=== PATIENT | female | born 1935 | race Caucasian/White ===

== ENCOUNTER 2017-12-14 05:09 | Inpatient (IN) ==
[2017-12-14] MEDS ORDERED: Chlorhexidine Gluconate 2% 1 Pack (2 Cloths) TOPICAL ONE (05:39)
[2017-12-14] MEDS ORDERED: Metoprolol Tartrate 25 MG Tablet PO ONE (05:39)
[2017-12-14] MEDS ORDERED: Dexamethasone Inj 20 MG/5 ML Vial IV.PUSH ONE (05:41)
[2017-12-14] MEDS ORDERED: Chlorhexidine 4% Topical 120 APPLIC/120 ML Bottle TOPICAL SCH (05:45)
[2017-12-14] MEDS ORDERED: Sodium Chlor 0.9% Inj 500 ML IV.SIG SCH (06:00)
[2017-12-14] MEDS ORDERED: ceFAZolin 2 GM Premix Inj 2 GM/50 ML PIGGYBACK IV.SIG SCH (06:00)
[2017-12-14] MEDS ORDERED: Vancomycin Inj 1,000 MG in Sodium Chlor 0.9% Inj 250 ML IV.SIG SCH (06:00)
[2017-12-14] MEDS ORDERED: ceFAZolin 2 GM Premix Inj 2 GM/100 ML BAG IV.SIG ONE (06:06)
[2017-12-14] MEDS ORDERED: Propofol Inj 500 MG/50 ML Vial ONE (06:28)
[2017-12-14] MEDS ORDERED: Bupivacaine/Dextrose 0.75% Inj 2 ML Ampul ONE (06:28)
[2017-12-14] MEDS ORDERED: Bupivacaine Liposomal PF 1.3% Inj 20 ML Vial ONE (06:33)
[2017-12-14] MEDS ORDERED: Lidocaine PF 1% Inj 5 ML Syringe OTHER ONE (07:00)
[2017-12-14] MEDS ORDERED: TRANEXAMIC ACID IV.SIG SCH ×2 (07:00→10:00)
[2017-12-14] MEDS ORDERED: Sodium Chlor 0.9% Inj 73.07 ML, Ropivacaine 0.5% PF Inj 24.63 ML, Ketorolac Inj 30 MG, ... P-ARTICULR SCH ×5 (07:00)
[2017-12-14] MEDS ORDERED: SODIUM CHLOR 0.9% IV.SIG SCH ×2 (07:00→10:00)
--- NOTE | 2017-12-14 07:13 | P.DCO ---
- Physical Therapy Physical Therapy: Gait training, Transfer training, bed to chair Knee: Total knee Right Lower Extremity Weight Bearing: Weight bearing as tolerated Right Lower Extremity Range of Motion: Active ROM - Nursing Nursing: Pio weber Dressing changes: Do not change dressing Additional instructions: First dressing change in office - Certification Need for Home Health services: I have seen patient Geri Olmos on 12/14/17. My clinical findings support the need for the requested home health care services because: Need for Home Health Services: Limited ability to care for self, High risk of falls Homebound Certification: I certify that my clinical findings support that this patient is homebound because: Homebound Certification: Post-op weakness, Unsteady gait/balance
[2017-12-14] MEDS ORDERED: Morphine Inj 4 MG/ML Vial IV.PUSH PRN (08:31)
[2017-12-14] MEDS ORDERED: Aluminum/Magnesium/Simethacone Susp 30 ML UDC PO PRN (08:31)
[2017-12-14] MEDS ORDERED: Post-op Orders (for Pharmacy) OTHER STA (08:31)
[2017-12-14] MEDS ORDERED: Bisacodyl 10 MG Supp RECTAL PRN (08:31)
--- NOTE | 2017-12-14 08:36 | P.OP ---
- Preoperative Diagnosis (1) Primary localized osteoarthritis of right knee - Postoperative Diagnosis (1) Primary localized osteoarthritis of right knee Date of procedure: 12/14/17 Procedure: Right total knee arthroplasty [facility] Surgeon: Davey Alcala MD Collector Of Internal Revenue: CHANA Ordonez The surgical procedure was assisted by my Advanced Registered Nurse Practitioner. My BIOLOGIST presence was necessary throughout this case for the manipulation and positioning of the surgical extremity. My BIOLOGIST was assisting me throughout the duration of this procedure. The skill set of an Advance Registered Nurse Practitioner was medically necessary to complete this procedure. During the surgical case, the director surgical was working at the back table and the Advance Registered Nurse Practitioner was directly assisting me. Operation and Findings: IMPLANTS: DePuy Attune: Patella: size 32. Femur, posterior stabilized size 6 narrow. Tibia, rotating platform size 4. Tibial insert, rotating platform, posterior stabilized size 5 mm thickness. ESTIMATED BLOOD LOSS: 150 cc TOURNIQUET TIME: 42 minutes at 250 mmHg pressure. JUSTIFICATION FOR PROCEDURE: The patient has end-stage osteoarthritis to the knee. There is an attached conservative measures pathway form in the chart that describes the nonoperative measures that were undertaken prior to consideration of surgical management. The patient understood the risks and benefits of surgical management. See my office notes for further details PROCEDURE: The patient was brought back to the operative theatre. Adequate anesthesia was obtained. The patient received intravenous vancomycin and Ancef. The lower extremity was prepped and draped in the usual sterile fashion.The leg was exsanguinated, the tourniquet was raised. A standard anterior incision was performed followed by medial parapatellar arthrotomy was performed. End-stage arthritis was identified. Osteotomy of the patella was performed. We drilled holes for the patella. We trialed the patella component. We placed an intramedullary guide into the distal femur. We ultimately resected 13 mm off of the distal femur in 5 degrees of valgus. The remnants of the ACL and PCL were resected. Osteotomy of the proximal tibia was performed, resecting 6 mm off of the medial side. This was done with 3 degrees of posterior slope using an extramedullary guide. The distal end of the guide was placed in the mid aspect of the ankle. The femur was sized, and four chamfer cuts were completed in 3 of external rotation. We then cut the central box in the distal femur to replace the PCL. We resected the remnants of the menisci and removed osteophytes off of the femur and tibia. We then trialed the knee. We punched the tibia for the keel, and then used standard technique to cement in components. Excess cement was removed. We trialed the knee again and the final polyethylene thickness was chosen to provide extension to 0 degrees, and flexion of 140 degrees to gravity. The ligaments were appropriately balanced. Lateral release was necessary to obtain excellent patellofemoral tracking. The tourniquet was released and adequate hemostasis was obtained. An intra- articular injection of a ropivacaine cocktail was injected. The posterior knee was inspected for excess cement, which was removed. The final polyethylene was put into position after thorough irrigation. We then closed deep fascia with a #2 Stratafix followed by skin with 2-0 Vicryl followed by Dermabond. Postop plan is to weight-bear as tolerated. DVT prophylaxis will be performed with SCDs, YING mckenzie, early mobilization, and Lovenox followed by aspirin.
[2017-12-14] MEDS ORDERED: fentaNYL Citrate Inj 100 MCG/2 ML Ampul ONE (09:05)
[2017-12-14] MEDS ORDERED: *morphine SULFATE 4 MG/ML PERIprocedure ONLY ONE (09:10)
--- NOTE | 2017-12-14 10:00 | XR ---
EXAM DATE: 12/14/2017 9:54 AM EDT AGE/SEX: 82 years / Female INDICATIONS: Post op right total knee arthroplasty. CLINICAL DATA: This is the patient's initial encounter. Patient reports that signs and symptoms have been present for 1 day and indicates a pain score of 1/10. MEDICAL/SURGICAL HISTORY: None. None. COMPARISON: No prior exams available for comparison. FINDINGS: 2 portable films demonstrate patient had a total knee arthroplasty in good position. No acute fractur es identified. Surgical drain overlies the suprapatellar bursa. CONCLUSION: Status post total knee arthroplasty in excellent position Electronically signed by: Aron Rene MD 12/14/2017 9:58 AM EDT
[2017-12-14] MEDS: Sod Chloride 0.9% Inj 1,000 ML IV.CONT SCH ×2 (10:11→22:11)
[2017-12-14] MEDS: Multivitamin/Minerals Therapeutic Tablet PO SCH ×2 (11:35→20:08)
[2017-12-14] MEDS: Senna/Docusate Sodium 8.6/50 MG Tablet PO SCH ×2 (11:35→20:08)
[2017-12-14] MEDS: amLODIPine 5 MG Tablet PO SCH (20:08)
[2017-12-14] MEDS ORDERED: Zolpidem Tartrate 5 MG Tablet PO PRN (21:00)
[2017-12-15 04:52] LABS: Hematocrit 26.8 % (35.0-46.0); Hemoglobin 9.1 gm/dL (11.6-15.3)
--- NOTE | 2017-12-15 07:19 | P.PNOP ---
Subjective Interval history: The patient is resting comfortably in bed in no acute distress. The patient reports no pain to the right knee. Physical Exam Vital signs: Vital Signs 12/14/17 08:00 12/14/17 09:00 12/14/17 09:15 Temperature 98.9 F 97.7 F Pulse Rate 63 67 65 Respiratory Rate 20 20 20 Blood Pressure 142/65 H 133/60 119/60 Pulse Oximetry 91 L 98 98 12/14/17 09:20 12/14/17 09:30 12/14/17 09:45 Temperature 97.5 F L Pulse Rate 69 65 Respiratory Rate 20 20 20 Blood Pressure 133/67 129/60 Pulse Oximetry 98 98 12/14/17 12:00 12/14/17 16:00 12/14/17 19:00 Temperature 97.3 F L 97.2 F L 97.7 F Pulse Rate 57 L 61 63 Respiratory Rate 20 18 18 Blood Pressure 121/58 L 105/56 L 104/58 L Pulse Oximetry 93 L 91 L 92 L 12/14/17 23:04 12/15/17 03:53 Temperature 97.7 F 97.5 F L Pulse Rate 60 60 Respiratory Rate 18 18 Blood Pressure 106/58 L 108/59 L Pulse Oximetry 92 L 92 L Intake & Output 12/14/17 12/15/17 12/15/17 18:59 06:59 18:59 Intake Total 1406.99 / 1406.99 1560 / 1560 Output Total 300 / 300 Balance 1106.99 / 1106.99 1560 / 1560 Weight 65.5 kg Intake: IV 662.99 / 662.99 1200 / 1200 NS Inj 1,000 ML @ 80 mls/hr IV. 1000 / 1000 CONT .[id number] [facility] Rx#:[id number] Cyklokapron Inj 655 MG In NS 212.99 / 212.99 Inj 100 ML @ 200 mls/hr IV.SIG ONCE [facility] Rx#:[id number] Vancomycin Inj 1,000 MG In NS 250 / 250 Inj 250 ML @ 250 mls/hr IV.SIG MATURITY CHECKER [facility] Rx#:[id number] Ancef 2 GM Premix Inj 2 gm In 100 / 100 100 ml @ 0 mls/hr IV.SIG .STK- [facility] Rx#:[id number] Ancef Inj 1,000 MG In NS Inj 100 / 100 200 / 200 100 ML @ 200 mls/hr IV.SIG Q6H [facility] Rx#:[id number] Oral 360 / 360 Anesthesia Amount 744 / 744 Output: Urine 150 / 150 Estimated Blood Loss 150 / 150 Other: # Voids 1 Date of Last Bowel Movement 12/13/17 12/13/17 # Bowel Movements 0 Narrative: The patient's dressing is clean, dry, and intact. EHL/TA/G are intact. 2+ pedal pulse. The patient's calf is soft and nontender. Sensation is intact to light touch distally. Canvas knee splint is in place. Results - Labs CBC & Chem 7: 12/15/17 03:35 Laboratory Results - last 24 hr 12/14/17 12/15/17 05:45 03:35 Hgb 9.1 L Hct 26.8 L Blood Type A Positive Blood Type Recheck Required Antibody Screen Negative - Imaging Impressions Knee X-Ray 12/14/17 08:30 CONCLUSION: Status post total knee arthroplasty in excellent position - Procedures Right total knee arthroplasty Assessment and Plan - Problem List (1) Status post total knee replacement, right Code(s): Z96.651 - Presence of right artificial knee joint Status: Acute (2) Primary localized osteoarthritis of right knee Code(s): M17.11 - Unilateral primary osteoarthritis, right knee Status: Acute - Assessment and Plan POD #1: [Right] total knee arthroplasty 1. Weightbearing as tolerated on [right] lower extremity. 2. Lovenox followed by aspirin for DVT prophylaxis. 3. Ice as needed for swelling. 4. Stable per ortho for discharge to residential facility ([facility]) Tuesday or Tuesday. 5. The patient will follow up with Dr. Alcala and/or CHANA Benjamin as previously scheduled.
[2017-12-15] MEDS: Enoxaparin Inj 40 MG/0.4 ML Syringe SQ SCH (07:45)
[2017-12-15] MEDS ORDERED: Dexamethasone Inj 20 MG/5 ML Vial IV.PUSH ONE (08:00)
[2017-12-15] MEDS: Multivitamin/Minerals Therapeutic Tablet PO SCH ×2 (09:21→20:04)
[2017-12-15] MEDS: Senna/Docusate Sodium 8.6/50 MG Tablet PO SCH ×2 (09:21→20:04)
[2017-12-15] MEDS: Sod Chloride 0.9% Inj 1,000 ML IV.CONT SCH (13:12)
[2017-12-15] MEDS: amLODIPine 5 MG Tablet PO SCH (20:04)
[2017-12-16] MEDS: Sod Chloride 0.9% Inj 1,000 ML IV.CONT SCH ×2 (01:14→13:53)
[2017-12-16 04:33] LABS: Hematocrit 26.3 % (35.0-46.0); Hemoglobin 8.9 gm/dL (11.6-15.3)
--- NOTE | 2017-12-16 06:56 | P.PNOP ---
Subjective Interval history: The patient is resting in bed and is having minimal pain to the right knee. The patient has decided she wants to be discharged home with home health today rather than going to rehab. Physical Exam Vital signs: Vital Signs 12/15/17 08:00 12/15/17 12:18 12/15/17 16:00 Temperature 98 F 98 F Pulse Rate 64 60 Respiratory Rate 16 16 18 Blood Pressure 107/52 L 144/63 H Pulse Oximetry 96 60 L 12/15/17 19:37 12/15/17 20:00 12/16/17 00:00 Temperature 97.8 F 97.5 F L 97.3 F L Pulse Rate 62 64 64 Respiratory Rate 18 17 18 Blood Pressure 130/62 155/71 H 169/77 H Pulse Oximetry 96 95 95 12/16/17 04:00 Temperature 97.4 F L Pulse Rate 78 Respiratory Rate 17 Blood Pressure 127/60 Pulse Oximetry 97 Intake & Output 12/15/17 12/15/17 12/16/17 06:59 18:59 06:59 Intake Total 1560 / 1560 2480 / 2480 Balance 1560 / 1560 2480 / 2480 Intake: IV 1200 / 1200 2000 / 2000 NS Inj 1,000 ML @ 80 mls/hr IV. 1000 / 1000 1000 / 1000 CONT .[id number] [facility] Rx#:[id number] LR 1000 mL Inj 1,000 ML @ 30 1000 / 1000 mls/hr IV.SIG .Q24H [facility] Rx#: [id number] Ancef Inj 1,000 MG In NS Inj 200 / 200 100 ML @ 200 mls/hr IV.SIG Q6H [facility] Rx#:[id number] Oral 360 / 360 480 / 480 Other: # Voids 1 4 Date of Last Bowel Movement 12/13/17 12/13/17 # Bowel Movements 0 Narrative: The patient's dressing is clean, dry, and intact. EHL/TA/G are intact. 2+ pedal pulse. The patient's calf is soft and nontender. Sensation is intact to light touch distally. Canvas knee splint is in place. Results - Labs CBC & Chem 7: 12/16/17 03:23 Laboratory Results - last 24 hr 12/16/17 03:23 Hgb 8.9 L Hct 26.3 L - Procedures Right total knee arthroplasty Assessment and Plan - Problem List (1) Status post total knee replacement, right Code(s): Z96.651 - Presence of right artificial knee joint Status: Acute (2) Primary localized osteoarthritis of right knee Code(s): M17.11 - Unilateral primary osteoarthritis, right knee Status: Acute - Assessment and Plan POD #2: [Right] total knee arthroplasty 1. Weightbearing as tolerated on [right] lower extremity. 2. Lovenox followed by aspirin for DVT prophylaxis. 3. Ice as needed for swelling. 4. Stable per ortho for discharge home today with home health. Rx on chart. 5. The patient will follow up with Dr. Alcala and/or CHANA Benjamin as previously scheduled.
[2017-12-16] MEDS: Senna/Docusate Sodium 8.6/50 MG Tablet PO SCH (08:07)
[2017-12-16] MEDS: Multivitamin/Minerals Therapeutic Tablet PO SCH (08:07)
[2017-12-16] MEDS: Enoxaparin Inj 40 MG/0.4 ML Syringe SQ SCH (08:07)
[2017-12-16 08:14] VITALS: BP 145/67; PULSE 63; RESP 16; TEMP 97.8; O2SAT 95
--- NOTE | 2017-12-16 10:17 | P.PNCA ---
Physical Exam Vital signs: Vital Signs 12/15/17 12:18 12/15/17 16:00 12/15/17 19:37 Temperature 98 F 97.8 F Pulse Rate 60 62 Respiratory Rate 16 18 18 Blood Pressure 144/63 H 130/62 Pulse Oximetry 60 L 96 12/15/17 20:00 12/16/17 00:00 12/16/17 04:00 Temperature 97.5 F L 97.3 F L 97.4 F L Pulse Rate 64 64 78 Respiratory Rate 17 18 17 Blood Pressure 155/71 H 169/77 H 127/60 Pulse Oximetry 95 95 97 12/16/17 08:00 Temperature 97.8 F Pulse Rate 63 Respiratory Rate 16 Blood Pressure 145/67 H Pulse Oximetry 95 Intake & Output 12/15/17 12/16/17 12/16/17 18:59 06:59 18:59 Intake Total 2480 / 2480 Balance 2480 / 2480 Intake: IV 1999 / 1999 NS Inj 1,000 ML @ 80 mls/hr IV. 1000 / 1000 CONT .[id number] [facility] Rx#:[id number] LR 1000 mL Inj 1,000 ML @ 30 1000 / 1000 mls/hr IV.SIG .Q24H [facility] Rx#: [id number] Oral 480 / 480 Other: # Voids 4 Date of Last Bowel Movement 12/13/17
--- NOTE | 2017-12-18 20:31 | P.DS ---
Date of admission: 12/14/17 05:09 Primary care physician: Concha Gayle MD Attending physician on discharge: Davey Alcala Anticipated date of discharge: 12/16/17 Brief History from admission: The patient was admitted to the hospital for severe osteoarthritis of the right to have a right total knee arthroplasty. DS: Diagnosis - Discharge Diagnosis (1) Status post total knee replacement, right Status: Acute (2) Primary localized osteoarthritis of right knee Status: Acute DS: Medications - Discharge Medications Prescriptions: aspirin 325 mg PO DAILY 30 Days #30 tab enoxaparin [Lovenox] 40 mg SUB-Q DAILY 10 Days #10 units hydrocodone-acetaminophen [[place]] 1 - 2 tab PO Q4-6H #50 tab DS: Summary Hospital Course: The patient was admitted to the hospital for severe osteoarthritis of the [right ] knee to have a [right] total knee arthroplasty. The patient's surgery went well with no complication. The patient is on a [regular] diet. The patient's DVT prophylaxis includes use of [Lovenox followed by aspirin]. The patient is weightbearing as tolerated. The patient was discharged [home with home health] and will follow up in the office with Dr. Alcala and/or CHANA Benjamin as previously scheduled. - Time Spent with Patient Total time spent providing and/or coordinating discharge services: Greater than 30 minutes - Quality: VTE Deep Vein Thrombosis/Pulmonary Embolism Present on Admission: No Exam Narrative: See progress note for the last physical examination Results Procedures completed during hospitalization: Right total knee arthroplasty - Impressions ITS Impressions Knee X-Ray 12/14/17 08:30 CONCLUSION: Status post total knee arthroplasty in excellent position Discharge Plan - Discharge Disposition Patient Disposition: W/Home Health Service - Discharge Condition Condition: Stable - Discharge Order Discharge Orders: Discharge Order (Routine); Ordered 12/14/17 Ordered By: Ashvin Celeste - Discharge Details Anticipated Discharge Date: 12/17/17 - Physicians Team Primary Care Provider: Concha Gayle Attending Provider: Davey Alcala Other Providers: North Bourgeois MD ; Uriah Gilmore [facility],[place] ; [employer], [employer] ; [facility],[place] - Rxs /Orders / Referrals /Forms Prescriptions: New aspirin 325 mg Tablet 325 mg PO DAILY 30 Days Qty: 30 RF: 0 enoxaparin [Lovenox] 40 mg/0.4 mL Syringe 40 mg SUB-Q DAILY 10 Days Qty: 10 RF: 0 hydrocodone-acetaminophen [[place]] 5-325 mg Tablet 1 - 2 tab PO Q4-6H Qty: 50 RF: 0 Continue amlodipine 5 mg Tablet 5 mg PO HS losartan 50 mg Tablet 50 mg PO HS Ambulatory Orders / Order Sets / DME: Adjustable Commode 3-in-1 (1 each) (Routine) Location: Determined by Patient Ordered By: Ashvin Celeste CPM - Continuous Passive Motion Machine (1 each) (Routine) Location: Determined by Patient Ordered By: Ashvin Celeste Walker With Front Wheels (1 each) (Routine) Location: Determined by Patient Ordered By: Ashvin Celeste Referrals: Davey Alcala MD [Physician] - See Instructions (f/u in the office as previously scheduled with Dr. Alcala or Landon Celeste [facility]) Concha Gayle MD [Primary Care Provider] - See Instructions - Discharge Instructions Patient Printed Instructions: Hydrocodone/Acetaminophen (By mouth), Aspirin ( By mouth), Laxative, Stool Softeners (By mouth), Enoxaparin (By injection), How to Choose and Use a Walker (GEN), Fall Prevention for Older Adults (ED), IYNG Hose (DC), Knee Immobilizer (ED), Knee Replacement (DC) Additional Instructions: Scripts provided at the time of discharge. Follow up as directed with your provider. Keep dressing dry and intact, do not change this dressing before your appointment. Call the doctors office if you suspect an infection.
== END 2017-12-16 15:06 | disposition home health service (06) ==
LOC: HSDI 05:09 → N06 10:20
PROVIDERS: ADMIT Orthopaedic Surgery; ATTEND Orthopaedic Surgery